=== PATIENT | male | born 1995 | race Caucasian/White ===

== ENCOUNTER 2018-05-27 18:37 | Emergency (ER) | payer OTHER ==
[2018-05-27 19:39] LABS: ABS Basophils 0 10^3/ul (0-0.2); ABS Eosinophils 0.1 10^3/ul (0-0.6); ABS Lymphocytes 1.9 10^3/ul (1.0-4.8); ABS Monocytes 0.7 10^3/ul (0-0.8); ABS Neutrophils 5.6 10^3/ul (1.5-7.7); ABS Nucleated RBC 0 10^3/ul; Eosinophil % 1.2 %; Hematocrit 47 % (42-52); Hemoglobin 16.7 g/dl (14.0-18.0); Lymphocyte % 22.8 %; Mean Corpuscular HGB Conc 36 g/dl (31-36); Mean Corpuscular Hemoglobin 31 pg (27-31); Mean Corpuscular Volume 88 fL (80-94); Mean Platelet Volume 9.6 fL (7.4-10.4); Nucleated Red Blood Cells % 0.1; Platelet Count 191 10^3/ul (150-450); Red Blood Count 5.33 10^6/ul (4.00-5.40); Red Cell Distribution Width 13 % (10.5-15); White Blood Count 8.4 10^3/ul (3.5-10.8)
[2018-05-27] MEDS ORDERED: NS 0.9% 1000 ML** 2,000 ML IV ONE (19:51)
[2018-05-27] MEDS ORDERED: Morphine VIAL* 4 MG/ML VIAL (1 ml vial) IV ONE (19:51)
[2018-05-27 20:07] LABS: Albumin 4.8 g/dL (3.2-5.2); Albumin/Globulin Ratio 1.7 (1-3); BUN/Creatinine Ratio 16.5 (8-20); EGFR African American 95.4 (>60); EGFR Non-African American 78.8 (>60); Globulin 2.9 g/dL (2-4); Potassium 4.1 mmol/L (3.5-5.0); Total Bilirubin 0.6 mg/dL (0.2-1.0); Total Protein 7.7 g/dL (6.4-8.9)
--- NOTE | 2018-05-27 20:36 | ED ---
Abdominal Pain/Male - HPI Summary HPI Summary: The patient is a 23 y/o M presenting to [facility] with a chief complaint of right- sided abd pain that had a sudden onset yesterday morning when he woke up. He states that he was driving to his parent's house in [place] when he realized that the pain was still present and is currently rated 7/10. He went to sleep last night thinking that the pain could potentially be muscular, but the pain has not seemed to change since onset. He denies feeling ill as he has normal BM and urine and a normal appetite; no nausea or vomiting. He denies any aggravating or alleviating factors. He states his father had appendicitis, but he has no abd surgical hx. - History of Current Complaint Chief Complaint: EDAbdPain Stated Complaint: ABD PAIN Time Seen by Provider: 05/27/18 19:46 Hx Obtained From: Patient Onset/Duration: Sudden Onset, Lasting Days - starting yesterday, Still Present Timing: Constant, Lasting Days - starting yesterday morning Severity Initially: Moderate Severity Currently: Moderate Pain Intensity: 7 Pain Scale Used: 0-10 Numeric Location: Other - right-sided, RUQ and RLQ Radiates: No Character: Dull Aggravating Factor(s): Nothing Alleviating Factor(s): Nothing Associated Signs And Symptoms: Positive: Other - NEGATIVE: urinary changes, changes in BM, decreased appetite. Negative: Nausea, Vomiting - Allergies/Home Medications Allergies/Adverse Reactions: Allergies Allergy/AdvReac Type Severity Reaction Status Date / Time No Known Allergies Allergy Verified 05/27/18 19:04 PMH/Surg Hx/FS Hx/Imm Hx Endocrine/Hematology History: Denies: Hx Diabetes Respiratory History: Denies: Hx Asthma Sensory History: Denies: Hx Deafness Opthamlomology History: Denies: Hx Legally Blind EENT History: Denies: Hx Deafness - Surgical History Surgery Procedure, Year, and Place: none Infectious Disease History: No Infectious Disease History: Denies: Traveled Outside the [place] in Last 30 Days - Family History Known Family History: Positive: Other - appendicitis in father Negative: Hypertension - Social History Occupation: Student Alcohol Use: Weekly Substance Use Type: Reports: Marijuana Smoking Status (MU): Never Smoked Tobacco Review of Systems Positive: Abdominal Pain - right-sided pain, Other - NEGATIVE: change in appetite, changes in BM. Negative: Vomiting, Nausea Positive: other - NEGATIVE: urinary symptoms All Other Systems Reviewed And Are Negative: Yes Physical Exam - Summary Physical Exam Summary: Appearance: Well-appearing, Well-nourished, lying in bed comfortably Skin: Warm, dry, no obvious rash Eyes: sclera anicteric, no conjunctival pallor ENT: mucous membranes moist, pharynx appears normal Neck: Supple, nontender Respiratory: Clear to auscultation, no signs of respiratory distress Cardiovascular: Normal S1, S2. No murmurs. Normal distal pulses in tibial and radial bilaterally. Abdomen: Soft, right-sided tenderness both upper and lower with guarding and rebound, normal active bowel sounds present Musculoskeletal: Normal, Strength/ROM Intact Neurological: A&Ox3, awake and alert, mentation is normal, speech is fluent and appropriate Psychiatric: affect is normal, does not appear anxious or depressed Triage Information Reviewed: Yes Vital Signs On Initial Exam: Initial Vitals Temp Pulse Resp BP Pulse Ox 98 F 74 16 108/71 98 05/27/18 18:57 05/27/18 18:57 05/27/18 18:57 05/27/18 18:57 05/27/18 18:57 Vital Signs Reviewed: Yes Diagnostics - Vital Signs Vital Signs Temp Pulse Resp BP Pulse Ox 05/27/18 20:00 75 97 05/27/18 19:59 71 145/83 97 05/27/18 18:57 98 F 74 16 108/71 98 - Laboratory Lab Results: Lab Results 05/27/18 05/27/18 Range/Units 19:28 19:28 WBC 8.4 (3.5-10.8) 10^3/ul RBC 5.33 (4.00-5.40) 10^6/ul Hgb 16.7 (14.0-18.0) g/dl Hct 47 (42-52) % MCV 88 (80-94) fL MCH 31 (27-31) pg MCHC 36 (31-36) g/dl RDW 13 (10.5-15) % Plt Count 191 (150-450) 10^3/ul MPV 9.6 (7.4-10.4) fL Neut % (Auto) 67.0 % Lymph % (Auto) 22.8 % [place] % (Auto) 8.4 % Eos % (Auto) 1.2 % Baso % (Auto) 0.6 % Absolute Neuts (auto) 5.6 (1.5-7.7) 10^3/ul Absolute Lymphs (auto) 1.9 (1.0-4.8) 10^3/ul Absolute Monos (auto) 0.7 (0-0.8) 10^3/ul Absolute Eos (auto) 0.1 (0-0.6) 10^3/ul Absolute Basos (auto) 0 (0-0.2) 10^3/ul Absolute Nucleated RBC 0 10^3/ul Nucleated RBC % 0.1 Sodium 139 (135-145) mmol/L Potassium 4.1 (3.5-5.0) mmol/L Chloride 103 (101-111) mmol/L Carbon Dioxide 30 (22-32) mmol/L Anion Gap 6 (2-11) mmol/L BUN 19 (6-24) mg/dL Creatinine 1.15 (0.67-1.17) mg/dL Est GFR ( Amer) 95.4 (>60) Est GFR (Non-Af Amer) 78.8 (>60) BUN/Creatinine Ratio 16.5 (8-20) Glucose 92 (70-100) mg/dL Calcium 10.0 (8.6-10.3) mg/dL Total Bilirubin 0.60 (0.2-1.0) mg/dL AST 20 (13-39) U/L ALT 24 (7-52) U/L Alkaline Phosphatase 81 (34-104) U/L Total Protein 7.7 (6.4-8.9) g/dL Albumin 4.8 (3.2-5.2) g/dL Globulin 2.9 (2-4) g/dL Albumin/Globulin Ratio 1.7 (1-3) Lipase 13 (11.0-82.0) U/L Result Diagrams: 05/27/18 19:28 05/27/18 19:28 Lab Statement: Any lab studies that have been ordered have been reviewed, and results considered in the medical decision making process. - CT abdomen/pelvis CT Interpretation Completed By: Radiologist Summary of CT Findings: 1. There is a 5 cm focus of infiltration of the omentum anteriorly in the right. midabdomen suggesting epiploic appendagitis, small focus of omental infarction. or similar, without abscess, diverticulitis, or obstruction. 2. Normal appendix. 3. Minimal abnormal free fluid in the pelvis. ED physician has reviewed this imaging report. Abdominal Pain Male Course/Dx - Course Course Of Treatment: The patient is a 23 y/o M presenting to [facility] with a chief complaint of right-sided abd pain that had a sudden onset yesterday morning when he woke up. The physical exam revealed abdominal Soft, right-sided tenderness both upper and lower with guarding and rebound, normal active bowel sounds present. Bloodwork, Chemistries, and urines obtained and are WNL. Abdomen /pelvis CT impression: 1. There is a 5 cm focus of infiltration of the omentum anteriorly in the right. midabdomen suggesting epiploic appendagitis, small focus of omental infarction. or similar, without abscess, diverticulitis, or obstruction. 2. Normal appendix. 3. Minimal abnormal free fluid in the pelvis. THe patient will be diagnosed with epiploic appendagitis. The patient will be discharged and is agreeable with this plan. - Diagnoses Provider Diagnoses: Epiploic appendagitis Discharge - Sign-Out/Discharge Documenting (check all that apply): Patient Departure - CA Patient Received Moderate/Deep Sedation with Procedure: No - Discharge Plan Condition: Good Disposition: HOME Patient Education Materials: Acute Abdominal Pain (ED) Referrals: [facility] [Outside] - 3 Days (if not improving) Additional Instructions: I would expect your symptoms to gradually improve over the rest of the week. Rest and take OTC pain medications, you can eat whatever you feel up to. If you start feeling much worse come back to the ED. - Billing Disposition and Condition Condition: GOOD Disposition: Home - Attestation Statements Document Initiated by John: Yes Documenting Scribe: Elena Borja Provider For Whom John is Documenting (Include Credential): Dr. Rosales Rodriguez MD Scribe Attestation: Elena Cornell scribed for Dr. Rosales Rodriguez MD on 05/28/18 at 0507. Scribe Documentation Reviewed: Yes Provider Attestation: The documentation as recorded by the Elena loya accurately reflects the service I personally performed and the decisions made by me, Dr. Rosales Rodriguez MD Status of Scribe Document: Viewed
[2018-05-27] MEDS ORDERED: Iohexol 300* (CONTRAST) 10 ML SDV IV ONE (21:20)
[2018-05-27 22:12] LABS: Urine Appearance Cloudy; Urine Bilirubin Negative (Negative); Urine Blood Negative (Negative); Urine Color Yellow; Urine Glucose Negative (Negative); Urine Ketones Negative (Negative); Urine Nitrite Negative (Negative); Urine Protein Negative (Negative); Urine Specific Gravity 1.014 (1.010-1.030); Urine Urobilinogen Negative (Negative)
[2018-05-27 23:47] VITALS: BP 128/79
== END 2018-05-27 23:48 | disposition home or self-care (01) ==
LOC: ED 18:37
DX: K63.89 Other specified diseases of intestine (principal)
CPT/HCPCS: 36415; 74177; 80053; 81003; 83690; 85025; 96361; 96374; 99283; J2270; Q9967